=== PATIENT | male | born 1935 | race Caucasian/White ===

== ENCOUNTER 2022-04-27 15:42 | Observation (INO) | payer MEDICARE ==
[~2022-04-27 15:42] MED LIST: Magnevist 469MG/ML 20 ML VIAL ONE
[2022-04-27 16:21] LABS: #Basophils 0.1 10x3/uL (0.0-0.2); #Eosinphils 0.5 10x3/uL (0.0-0.5); #Monocytes 0.6 10x3/uL (0.0-1.1); #Neutrophils 5.7 10x3/uL (1.5-8.4); %Basophils 0.7 % (0.0-2.0); %Eosinophils 5.3 % (0.0-6.0); %Lymphocytes 21.3 % (18.0-47.0); %Monocytes 7.1 % (0.0-10.0); %Neutrophils 65.4 % (40.0-75.0); Hemoglobin 10.4 g/dL (13.5-17.5); Mean Corpuscular HGB CONC 33.1 g/dL (32.0-36.0); Mean Corpuscular Hemoglobin 29.1 pg (27.0-33.0); Platelet Count 214 10x3/uL (150-450); RBC Distribution Width 13.2 % (11.5-14.5); Red Blood Cell (RBC) Count 3.57 10x6/uL (4.32-5.72); White Blood Cell (WBC) Count 8.7 10x3/uL (3.5-10.5)
[2022-04-27 16:39] LABS: ALT (SGPT) 17 U/L (8-55); AST (SGOT) 21 U/L (5-34); Albumin 3.9 g/dL (3.4-4.8); Alkaline Phosphatase 109 U/L (40-110); Anion Gap 14 mmol/L (10-20); BUN (Urea Nitrogen) 42 mg/dL (8.4-25.7); Bilirubin, Total 0.5 mg/dL (0.2-1.2); CK (CPK) 68 U/L (30-200); Calc. Creatinine Clearance 0 mL/min (70-130); Calcium 9.7 mg/dL (7.8-10.44); Carbon Dioxide 23 mmol/L (23-31); Chloride 105 mmol/L (98-107); Estimated GFR 31; Globulin 2.7 g/dL (2.4-3.5); Glucose 98 mg/dL (83-110); Protein, Total 6.6 g/dL (5.8-8.1); Sodium 137 mmol/L (136-145)
[2022-04-27 17:14] LABS: Bilirubin Neg (Negative); Blood, Urine Negative (Negative); Clarity Clear (Clear); Glucose, Urine (Dipstick) Normal (Negative); Ketone, Urine Negative (Negative); Leukocyte Negative (Negative); Nitrite Negative (Negative); Protein, Urine (Dipstick) 15 mg/dl (Neg-Trace); Specific Gravity, Urine 1.015 (1.005-1.030); Urobilinogen Normal mg/dL (Less than 2); pH, Urine 6.5 (5.0-9.0)
[2022-04-27] MEDS ORDERED: Meclizine HCl 25 MG TAB ONE (17:15)
[2022-04-28] MEDS ORDERED: Aspirin 325 mg Enteric Coated Tablet PO SCH (00:15)
[2022-04-28 00:21] VITALS: BMI 33.4
[2022-04-28] MEDS ORDERED: Sodium Chloride 0.9% 1,000 ML IV SCH (01:00)
[2022-04-28 05:07] LABS: #Eosinphils 0.4 10x3/uL (0.0-0.5); #Monocytes 0.6 10x3/uL (0.0-1.1); #Neutrophils 4.5 10x3/uL (1.5-8.4); %Basophils 0.5 % (0.0-2.0); %Eosinophils 5.8 % (0.0-6.0); %Lymphocytes 25.9 % (18.0-47.0); %Monocytes 7.9 % (0.0-10.0); %Neutrophils 59.6 % (40.0-75.0); Hemoglobin 8.8 g/dL (13.5-17.5); Mean Corpuscular HGB CONC 32.1 g/dL (32.0-36.0); Mean Corpuscular Hemoglobin 28.8 pg (27.0-33.0); Mean Corpuscular Volume 89.5 fl (81.2-95.1); Mean Platelet Volume 10.8 fl (7.4-10.4); Platelet Count 165 10x3/uL (150-450); RBC Distribution Width 13.2 % (11.5-14.5); Red Blood Cell (RBC) Count 3.06 10x6/uL (4.32-5.72); White Blood Cell (WBC) Count 7.5 10x3/uL (3.5-10.5)
[2022-04-28 05:26] LABS: Anion Gap 13 mmol/L (10-20); BUN (Urea Nitrogen) 40 mg/dL (8.4-25.7); Calc. Creatinine Clearance 36 mL/min (70-130); Calcium 9.5 mg/dL (7.8-10.44); Carbon Dioxide 25 mmol/L (23-31); Cardiac Risk 2.7 (Less than 4.5); Chloride 109 mmol/L (98-107); Cholesterol 127 mg/dl (< 200 Desired); Estimated GFR 34; Glucose 93 mg/dL (83-110); HDL Cholesterol 47 mg/dL (>60 Neg Risk); LDL Cholesterol, Calculated 35 mg/dL; Magnesium 2.2 mg/dL (1.6-2.6); Potassium 5.3 mmol/L (3.5-5.1); Sodium 142 mmol/L (136-145); Triglycerides 225 mg/dL (Less than 150)
[2022-04-28] MEDS ORDERED: Enoxaparin Sodium 30 MG/0.3 ML SYRINGE SC SCH ×2 (09:00)
[2022-04-28] MEDS: Aspirin 81 mg Enteric Coated Tablet PO SCH (09:44)
[2022-04-28] MEDS ORDERED: Ventolin HFA Inhaler 60 PUFF INHALER INH PRN (14:44)
[2022-04-28] MEDS: Sodium Chloride 0.9% 1,000 ML IV SCH (15:40)
[2022-04-28 16:00] LABS: Anion Gap 13 mmol/L (10-20); BUN (Urea Nitrogen) 35 mg/dL (8.4-25.7); Calc. Creatinine Clearance 42 mL/min (70-130); Calcium 9.2 mg/dL (7.8-10.44); Carbon Dioxide 21 mmol/L (23-31); Chloride 106 mmol/L (98-107); Estimated GFR 40; Glucose 120 mg/dL (83-110); Potassium 4.5 mmol/L (3.5-5.1); Sodium 135 mmol/L (136-145)
[2022-04-28] MEDS ORDERED: Gabapentin 100 MG CAP PO SCH (21:00)
[2022-04-29] MEDS: Sodium Chloride 0.9% 1,000 ML IV SCH ×2 (02:58→09:47)
[2022-04-29] MEDS: Dorzolamide HCl 2% Ophth Soln 10 ml Bottle EA EYE SCH ×2 (02:59→09:42)
[2022-04-29 04:42] LABS: #Eosinphils 0.3 10x3/uL (0.0-0.5); #Monocytes 0.5 10x3/uL (0.0-1.1); #Neutrophils 3.5 10x3/uL (1.5-8.4); %Basophils 0.6 % (0.0-2.0); %Eosinophils 5.4 % (0.0-6.0); %Lymphocytes 29.6 % (18.0-47.0); %Monocytes 7.7 % (0.0-10.0); %Neutrophils 56.5 % (40.0-75.0); Hemoglobin 8.9 g/dL (13.5-17.5); Mean Corpuscular HGB CONC 32.8 g/dL (32.0-36.0); Mean Corpuscular Hemoglobin 28.8 pg (27.0-33.0); Mean Corpuscular Volume 87.7 fl (81.2-95.1); Mean Platelet Volume 10.5 fl (7.4-10.4); Platelet Count 155 10x3/uL (150-450); Red Blood Cell (RBC) Count 3.09 10x6/uL (4.32-5.72); White Blood Cell (WBC) Count 6.3 10x3/uL (3.5-10.5)
[2022-04-29 04:54] LABS: Anion Gap 11 mmol/L (10-20); BUN (Urea Nitrogen) 28 mg/dL (8.4-25.7); Calc. Creatinine Clearance 47 mL/min (70-130); Calcium 9.2 mg/dL (7.8-10.44); Carbon Dioxide 23 mmol/L (23-31); Chloride 110 mmol/L (98-107); Estimated GFR 46; Glucose 96 mg/dL (83-110); Potassium 4.5 mmol/L (3.5-5.1); Sodium 139 mmol/L (136-145)
[2022-04-29] MEDS ORDERED: Atorvastatin Calcium 40 MG TAB PO SCH (09:00)
[2022-04-29] MEDS ORDERED: Enoxaparin Sodium 40 MG/0.4 ML SYRINGE SC SCH (09:00)
[2022-04-29] MEDS ORDERED: NIFEdipine XL 30 MG TAB PO SCH (09:00)
[2022-04-29] MEDS ORDERED: Loratadine 10 MG TAB PO SCH (09:00)
[2022-04-29] MEDS: Aspirin 81 mg Enteric Coated Tablet PO SCH (09:41)
[2022-04-29 11:26] VITALS: BP 190/75; TEMP 97.7
== END 2022-04-29 15:30 | disposition home or self-care (01) ==
LOC: CSHERS 15:42 → CSHTELE 23:02
PROVIDERS: ADMIT Family Medicine; ATTEND Internal Medicine
DX: N17.9 Acute kidney failure, unspecified (principal); I12.9 Hypertensive chronic kidney disease with stage 1 through stage 4 chronic kidney disease, or unspecified chronic kidney disease; N18.2 Chronic kidney disease, stage 2 (mild); D63.1 Anemia in chronic kidney disease; J44.9 Chronic obstructive pulmonary disease, unspecified; R42 Dizziness and giddiness; R00.1 Bradycardia, unspecified; E87.5 Hyperkalemia; R26.89 Other abnormalities of gait and mobility; N40.0 Benign prostatic hyperplasia without lower urinary tract symptoms; E78.5 Hyperlipidemia, unspecified; Z20.822 Contact with and (suspected) exposure to COVID-19; Z79.82 Long term (current) use of aspirin; Z79.899 Other long term (current) drug therapy; Z90.49 Acquired absence of other specified parts of digestive tract
CPT/HCPCS: 70450; 70544; 70553; 71045; 76770; 80048 ×3; 80053; 80061; 81003; 82550; 83735; 83880; 84484; 85025 ×3; 93005 ×2; 93306; 94760; 96372 ×2; 99285; G0378 ×2; U0003; U0005; 36415; 93010; A9579; J1650; J7050

== ENCOUNTER 2022-08-13 10:04 | Day surgery (SDC) | payer MEDICARE ==
[2022-08-11 13:38] VITALS: BMI 27.6
[2022-08-13] MEDS ORDERED: PROPOFOL 40 ML ONE (11:45)
[2022-08-13] MEDS ORDERED: Lidocaine 2% MPF 10 ML AMP (For Epidural Use) ONE (11:45)
[2022-08-13] MEDS ORDERED: ePHEDrine Sulfate 50 MG/10 ML VIAL ONE (12:50)
[2022-08-13] MEDS ORDERED: Ondansetron PF 4 MG/2 ML Vial ONE (13:01)
[2022-08-13] MEDS ORDERED: Iopamidol 300 61% 100 ML VIAL FS ONE (14:45)
== END 2022-08-13 15:50 | disposition home or self-care (01) ==
LOC: CSHSDC 10:04
PROVIDERS: ATTEND Internal Medicine Gastroenterology
PROC: 0DD58ZX Extraction of Esophagus, Via Natural or Artificial Opening Endoscopic, Diagnostic (ICD-10-PCS; principal; 2022-08-13)
DX: D49.0 Neoplasm of unspecified behavior of digestive system (principal); K21.9 Gastro-esophageal reflux disease without esophagitis; K44.9 Diaphragmatic hernia without obstruction or gangrene; K31.7 Polyp of stomach and duodenum; I12.9 Hypertensive chronic kidney disease with stage 1 through stage 4 chronic kidney disease, or unspecified chronic kidney disease; N18.9 Chronic kidney disease, unspecified; E78.5 Hyperlipidemia, unspecified; Z90.49 Acquired absence of other specified parts of digestive tract
CPT/HCPCS: 74160; 82565; 88305; 88341; 88342; J2405; J2704; Q9967

== ENCOUNTER 2022-08-20 09:13 | Day surgery (SDC) | payer MEDICARE ==
[2022-08-19 16:14] VITALS: BMI 29.8
[2022-08-20] MEDS ORDERED: PROPOFOL 20 ML ONE ×2 (11:27→11:53)
== END 2022-08-20 13:25 | disposition home or self-care (01) ==
LOC: CSHSDC 09:13
PROVIDERS: ATTEND Internal Medicine Gastroenterology
PROC: 0DD68ZX Extraction of Stomach, Via Natural or Artificial Opening Endoscopic, Diagnostic (ICD-10-PCS; principal; 2022-08-20)
DX: C16.9 Malignant neoplasm of stomach, unspecified (principal); K22.70 Barrett's esophagus without dysplasia; K21.9 Gastro-esophageal reflux disease without esophagitis; K31.89 Other diseases of stomach and duodenum; K31.7 Polyp of stomach and duodenum; K44.9 Diaphragmatic hernia without obstruction or gangrene; I10 Essential (primary) hypertension; E78.5 Hyperlipidemia, unspecified; Z79.899 Other long term (current) drug therapy; Z90.49 Acquired absence of other specified parts of digestive tract
CPT/HCPCS: 88305; 88341; 88342; J2704